=== PATIENT | female | born 1985 | race Caucasian/White ===

== ENCOUNTER 2021-08-28 17:56 | Inpatient (IN) ==
[2021-08-28] MEDS ORDERED: Penicillin G Potassium IV 5,000,000 UNITS in NS 0.9% 100 ml BAG 100 ML IVPB ONE (18:24)
[2021-08-28] MEDS ORDERED: Buffered Lidocaine 1% SYRIN 1 ml INTRADERM ONE (18:24)
[2021-08-28] MEDS ORDERED: Lactated Ringers 1000 ml BAG 1,000 ML IV ONE (18:24)
[2021-08-28] MEDS ORDERED: Lactated Ringers 1000 ml BAG 1,000 ML IV SCH ×3 (19:00→23:00)
[2021-08-28] MEDS ORDERED: Betamethasone 6 mg/ml 5 ml VIAL IM SCH (19:00)
[2021-08-28] MEDS ORDERED: Penicillin G Potassium IV 3,000,000 UNITS in NS 0.9% 100 ml BAG 100 ML IVPB SCH (19:00)
[2021-08-28 19:09] LABS: ABS Basophils 0.1 10^3/ul (0-0.2); ABS Lymphocytes 2.8 10^3/ul (1.0-4.8); ABS Monocytes 0.9 10^3/ul (0-0.8); ABS Neutrophils 10.9 10^3/ul (1.5-7.7); Eosinophil % 0.3 %; Hematocrit 33 % (35-47); Hemoglobin 10.9 g/dL (12.0-16.0); Lymphocyte % 18.8 %; Mean Corpuscular HGB Conc 33 g/dL (31-36); Mean Corpuscular Hemoglobin 28 pg (27-31); Mean Corpuscular Volume 86 fL (80-97); Platelet Count 319 10^3/uL (150-450); Red Blood Count 3.91 10^6 /uL (3.70-4.87); Red Cell Distribution Width 14 % (10-15); White Blood Count 14.7 10^3/uL (3.5-10.8)
[2021-08-28] MEDS ORDERED: OBEPIDURAL 250 ML EPIDURAL ONE (19:23)
[2021-08-28] MEDS ORDERED: fentaNYL 100 mcg/2 ml 50 MCG/ML VIAL ONE (19:44)
[2021-08-28] MEDS ORDERED: Bupivacaine 0.25% SDV PF 10 ML VIAL INJ ONE (19:44)
[2021-08-28 21:08] LABS: Urine Appearance Cloudy; Urine Bilirubin Negative (Negative); Urine Blood 3+ (Negative); Urine Color Yellow; Urine Glucose Negative (Negative); Urine Ketones 2+ (Negative); Urine Nitrite Negative (Negative); Urine Protein 1+(30 mg/dL) (Negative); Urine Specific Gravity 1.035 (1.002-1.030); Urine Urobilinogen Negative (Negative)
[2021-08-28 21:12] LABS: Urine Bacteria Absent (Absent); Urine Red Blood Cell 3+(>10/hpf) (Absent); Urine Squamous Epithelial Cell Present (Absent); Urine White Blood Cell Trace(0-5/hpf) (Absent)
[2021-08-28 21:24] LABS: Urine Benzodiazepine Screen Presumptive Positive (None Detect); Urine Cannabinoids Screen None Detected (None Detect); Urine Opiates Screen None Detected (None Detect)
[2021-08-28] MEDS ORDERED: Dibucaine 1% OINT 28.35 GM TUBE PR PRN (22:53)
[2021-08-28] MEDS ORDERED: Witch Hazel PAD JAR TOPICAL PRN (22:53)
[2021-08-28] MEDS ORDERED: Oxytocin in LR 20 UNITS/1,000 ML BAG IVPB SCH (23:00)
[2021-08-28] MEDS ORDERED: Varicella Virus Vaccine Live 0.5 ML VIAL SUBCUT ONE (23:15)
[2021-08-29] MEDS: Oxytocin in LR 20 UNITS/1,000 ML BAG IVPB ONE ×2 (00:33→06:19)
[2021-08-29] MEDS ORDERED: Lidocaine 1% VIAL 10 MG/ML VIAL ONE (00:46)
[2021-08-29] MEDS: Penicillin G Potassium IV 3,000,000 UNITS in NS 0.9% 100 ml BAG 100 ML IVPB SCH (06:20)
[2021-08-29 06:59] LABS: ABS Lymphocytes 1.6 10^3/ul (1.0-4.8); ABS Monocytes 1.1 10^3/ul (0-0.8); ABS Neutrophils 16.5 10^3/ul (1.5-7.7); Hematocrit 27 % (35-47); Hemoglobin 8.6 g/dL (12.0-16.0); Lymphocyte % 8.3 %; Mean Corpuscular HGB Conc 33 g/dL (31-36); Mean Corpuscular Hemoglobin 28 pg (27-31); Mean Corpuscular Volume 86 fL (80-97); Platelet Count 261 10^3/uL (150-450); Red Blood Count 3.08 10^6 /uL (3.70-4.87); Red Cell Distribution Width 14 % (10-15); White Blood Count 19.2 10^3/uL (3.5-10.8)
[2021-08-30] MEDS ORDERED: Varicella Virus Vaccine Live 0.5 ML VIAL SUBCUT ONE (15:00)
[2021-08-30 17:10] VITALS: BP 131/71
== END 2021-08-30 17:08 | disposition home or self-care (01) | DRG 807 ==
LOC: MCHOBOUT 17:56 → MCHOB 18:20
PROVIDERS: ADMIT Midwife; ATTEND Midwife